=== PATIENT | female | born 1960 | race Caucasian/White ===

== ENCOUNTER 2019-04-14 10:50 | Day surgery (SDC) | payer BC, OTHER ==
[2019-04-04 16:01] VITALS: BMI 23.1
[~2019-04-14 10:50] MED LIST: DEXAMETHASONE SOD PHOSPHATE 10 MG/ML 1 ML VIAL IV ONE; HYDROmorphone 0.5 MG/0.5 ML SYRINGE IVP PRN; LACTATED RINGERS 1,000 ML IV SCH; MIDAZOLAM 2 MG/2 ML VIAL IV PRN; ONDANSETRON 4 MG/2 ML VIAL IVP ONE; SCOPOLAMINE 1.5MG/72HR PATCH TRANSDERM ONE
[2019-04-14] MEDS ORDERED: LIDOCAINE 0.5%-EPI 1:200,000 50 ML VIAL SQ ONE (11:34)
[2019-04-14] MEDS ORDERED: IOPAMIDOL M200 10 ML VIAL MISCELLANE ONE ×2 (11:34)
[2019-04-14] MEDS ORDERED: ROCURONIUM BROMIDE 10 MG/ML 10 ML VIAL IV ONE (12:12)
[2019-04-14] MEDS ORDERED: fentaNYL (PF) 50 MCG/ML 2 ML AMP ONE (12:12)
[2019-04-14] MEDS ORDERED: PROPOFOL 10 MG/ML 20 ML VIAL IV ONE (12:12)
[2019-04-14] MEDS ORDERED: MIDAZOLAM 2 MG/2 ML VIAL ONE (12:12)
[2019-04-14] MEDS ORDERED: KETOROLAC 30 MG/ML 1 ML VIAL ONE (12:12)
[2019-04-14] MEDS ORDERED: KETOROLAC 30 MG/ML 1 ML VIAL IVP PRN (13:20)
[2019-04-14] MEDS ORDERED: IBUPROFEN 600 MG TAB PO PRN (13:20)
[2019-04-14] MEDS ORDERED: ONDANSETRON 4 MG/2 ML VIAL IVP PRN (13:20)
[2019-04-14] MEDS ORDERED: HYDROcodone/APAP 5-325MG 1 EACH TAB PO PRN ×2 (13:20)
[2019-04-14] MEDS ORDERED: HYDROmorphone 0.5 MG/0.5 ML SYRINGE IVP PRN (13:20)
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
[2019-04-14] MEDS ORDERED: NON FORMULARY DRUG (Naproxen Sodium 220 MG) PO PRN (13:22)
[2019-04-14] MEDS ORDERED: HYDROcodone/APAP 7.5-325MG 1 EACH TAB PO PRN (13:22)
[2019-04-14] MEDS ORDERED: IBUPROFEN 800 MG TAB PO PRN (13:22)
[2019-04-14] MEDS ORDERED: SODIUM CHLORIDE 0.9% 1,000 ML IV SCH (13:30)
[2019-04-14 13:34] VITALS: TEMP 97
--- NOTE | 2019-04-14 13:40 | FL ---
EXAMINATION TYPE: FL guidance operating room, XR thoracic spine 2V DATE OF EXAM: 04/14/2019 CLINICAL HISTORY: Thoracic spine pain. Kyphoplasty for T12 compression fracture. TECHNIQUE: Fluoroscopy. COMPARISON: None. FINDINGS: Fluoroscopic guidance was provided during pain relief procedure performed by Dr. Rivas . A total of 50 seconds of fluoroscopic time was utilized during the procedure and two spot images a re acquired. Images acquired shows needle localization at T12 with kyphoplasty change. IMPRESSION: As Above.
[2019-04-14 13:42] VITALS: RESP 16
[2019-04-14 14:46] VITALS: BP 145/84; PULSE 94
== END 2019-04-14 14:59 | disposition home or self-care (01) ==
LOC: OR 10:50
PROVIDERS: ATTEND Orthopaedic Surgery Orthopaedic Surgery of the Spine
DX: S22.080A Wedge compression fracture of T11-T12 vertebra, initial encounter for closed fracture (principal); M70.72 Other bursitis of hip, left hip; V89.2XXA Person injured in unspecified motor-vehicle accident, traffic, initial encounter; Z98.891 History of uterine scar from previous surgery
CPT/HCPCS: 86900; 86901; 86850; 88307; 88311; 72070; 36415; 22513; C1713; J2250; J1100; J0690; J2405; J3010; J1885; J2704; Q9966